=== PATIENT | female | born 1950 | race American Indian/Alaskan Native ===

== ENCOUNTER 2019-01-17 13:43 | Outpatient (CLI) | payer MEDICARE ==
--- NOTE | 2019-01-17 14:48 | Mammography Report ---
Screening mammogram: Routine views are obtained and comparison is made to her prior examination in June 2011. There is an aggregate of rounded partially overlying calcifications in the upper outer right breast with increasing degree of calcification compared to prior exam. There are 2 circumscribed nodules in the right breast the larger of which contains a degenerative dense calcification. The nodules have not changed except the calcification is new. There is a circumscribed elongated nodule in the inferior left breast. This is increased in size from 9.4 mm to 13.8 mm. The left breast has not otherwise changed. The breasts are generally fatty replaced bilaterally. CAD used. Impression: Interval enlargement of left breast nodule. Recommendation: Attempts will be made to obtain the patient's interim mammogram for comparison. Final recommendation will be made following comparison. BI-RADS CATEGORY: 0 = Needs additional imaging evaluation ACR BI-RADS MAMMOGRAPHIC CODES: 0 = Needs additional imaging evaluation; 1 = Negative; 2 = Benign; 3 = Probably benign; 4 = Suspicious; 5 = Malignant; 6 = Known biopsy-proven malignancy COMMENT: 1. Dense breast tissue, i.e., adenosis, fibrocystic changes, etc., may obscure an underlying neoplasm. 2. Approximately 10% of cancers are not detected with mammography. 3. A negative mammography report should not delay biopsy if a clinically suspicious mass is present.
== END 2019-01-17 13:44 | disposition home or self-care (01) ==
LOC: MAMMO 13:43
PROVIDERS: ATTEND Nurse Practitioner
DX: Z12.31 Encounter for screening mammogram for malignant neoplasm of breast (principal)
CPT/HCPCS: 77067